=== PATIENT | female | born 1940 | race Caucasian/White ===

== ENCOUNTER 2016-10-23 12:36 | Observation (INO) | payer OTHER ==
[~2016-10-23] VITALS: Ht 157.5 cm; Wt 92.2 kg
[~2016-10-23 12:36] MED LIST: AMLODIPINE BESYL5 MG PO; ATENOLOL100 MG PO; BENADRYL25 MG PO; CLONIDINE HCL0.3 MG PO; COUMADIN1 MG PO; IRON325 M1 PO; LO-DOSE ASPIRIN81 M1 PO; METFORMIN HCL500 MG PO; OMEPRAZOLE40 M1 PO; OXYCODONE HCL5 MG PO; PLAVIX75 MG PO; PRAVASTATIN SOD80 MG PO; SENNA-TIME S T1 EACH PO; SINGULAIR10 MG PO; TEKTURNA150 MG PO; THERAGRAN1 TABLET PO; TYLENOL REGULA325 MG PO; ZESTORETIC 20-1 EAC1 NG; ZYRTEC10 M3 PO
[2016-10-23 13:33] LABS: ADD MIUA? YES; BILIRUBIN NEGATIVE; BLOOD NEGATIVE; COLOR YELLOW ((YELLOW)); GLUCOSE (STRIP) NEGATIVE; KETONES NEGATIVE; LEUKOCYTES SMALL; NITRITE NEGATIVE; PROTEIN (STRIP) NEGATIVE; SPECIFIC GRAVITY 1.013 (1.000-1.030); UROBILINOGEN 0.2 MG/DL (0.2-1.0)
[2016-10-23 13:37] LABS: BACTERIA NONE SEEN /HPF; EPITHELIAL CELLS 1+ /HPF; MUCUS NONE SEEN /LPF; RED BLOOD CELLS 0-5 /HPF (0-5); WHITE BLOOD CELLS 0-5 /HPF (0-5)
[2016-10-23 14:35] LABS: HEMATOCRIT 34.9 % (36.0-46.0); MCH 30.2 PG (29.0-34.0); MCHC 32.7 G/DL (30.0-36.0); MCV 92.6 FL (83-99); MEAN PLAT.VOLUME 9.2 uM^3 (9.5-12.4); PLATELET COUNT 379 K/uL (156-360); RBC DIS.WIDTH-CV 16.6 % (11.8-14.6); RBC DIS.WIDTH-SD 55.9 % (39-53); RED BLOOD COUNT 3.77 M/uL (3.80-5.20); WHITE BLOOD COUNT 7.5 K/uL (4.1-10.2)
[2016-10-23 14:47] LABS: ANION GAP 9 MEQ/L (2-14); CHLORIDE 97 MEQ/L (99-109); POTASSIUM 4.5 MEQ/L (3.7-5.4); PROTHROMBIN TIME 10.6 (9.2-11.2); PTT 27.1 (25-32); SAMPLE HEMOLYSIS CHECK 0; SAMPLE ICTERIC CHECK 0; SAMPLE LIPEMIA CHECK 0; SODIUM 133 MEQ/L (136-147); TOTAL BILIRUBIN 0.5 MG/DL (0.0-1.0)
[2016-10-23 14:52] LABS: ALKALINE PHOSPHATASE 94 IU/L (3-129); GFR ESTIMATE (CALCULATED) 39 mL/min/; GLUCOSE 134 mg/dL (70-99); UREA NITROGEN (BUN) 24 mg/dL (9-23)
[2016-10-23 15:37] LABS: TROP-I INTERPRETATION NEGATIVE; TROPONIN-I 0.03 ng/mL (0.0-0.30)
[2016-10-23] MEDS ORDERED: ATORVASTATIN CA80 MG PO (16:35)
[2016-10-23] MEDS ORDERED: ZESTORETIC 20-1 EAC1 PO (16:36)
[2016-10-23] MEDS ORDERED: METHOTREXATE2.5 MG PO (16:38)
[2016-10-23] MEDS ORDERED: LO-DOSE ASPIRIN81 M2 PO (16:38)
[2016-10-23] MEDS ORDERED: CLOPIDOGREL75 MG PO (16:38)
[2016-10-23] MEDS ORDERED: MAGNESIUM250 MG PO (16:39)
[2016-10-23] MEDS ORDERED: ERGOCALCIF50000 UNIT PO (16:39)
[2016-10-23] MEDS ORDERED: XELJANZ5 MG PO (16:39)
[2016-10-23] MEDS ORDERED: FOLIC ACID1 MG PO (16:39)
[2016-10-23 19:13] LABS: MAGNESIUM 1.5 mg/dl (1.3-2.7)
[2016-10-23 21:34] LABS: POINT-OF-CARE METER ID UU13113700
[2016-10-23 22:20] LABS: TROP-I INTERPRETATION NEGATIVE; TROPONIN-I 0.05 ng/mL (0.0-0.30)
[2016-10-24 00:59] VITALS: BP 88/48
[2016-10-24 01:40] VITALS: BP 130/66
[2016-10-24 04:27] VITALS: BP 117/61
[2016-10-24 05:56] LABS: TROP-I INTERPRETATION NEGATIVE; TROPONIN-I 0.06 ng/mL (0.0-0.30)
[2016-10-24 05:59] LABS: HEMATOCRIT 29.5 % (36.0-46.0); MCH 30.3 PG (29.0-34.0); MCHC 32.5 G/DL (30.0-36.0); MCV 93.1 FL (83-99); MEAN PLAT.VOLUME 9.6 uM^3 (9.5-12.4); PLATELET COUNT 310 K/uL (156-360); RBC DIS.WIDTH-CV 16.9 % (11.8-14.6); RBC DIS.WIDTH-SD 56.9 % (39-53); RED BLOOD COUNT 3.17 M/uL (3.80-5.20)
[2016-10-24 06:01] LABS: ANION GAP 7 MEQ/L (2-14); CHLORIDE 101 MEQ/L (99-109); GFR ESTIMATE (CALCULATED) 47 mL/min/; HDL CHOLESTEROL 38 MG/DL (Desirable>=50); LDL CHOLESTEROL 65 mg/dL (Desirable<100); NON-HDL CHOLESTEROL 109 mg/dL (Desirable<160); SAMPLE HEMOLYSIS CHECK 0; SAMPLE ICTERIC CHECK 0; SAMPLE LIPEMIA CHECK 0; SODIUM 134 MEQ/L (136-147); TOTAL CHOLESTEROL 147 mg/dL (Desirable<200); TRIGLYCERIDES 219 MG/DL (Normal: <150); UREA NITROGEN (BUN) 21 mg/dL (9-23)
[2016-10-24 06:27] LABS: GLUCOSE 97 mg/dL (70-99); POTASSIUM 3.5 MEQ/L (3.7-5.4)
[2016-10-24 06:31] LABS: WHITE BLOOD COUNT 4.4 K/uL (4.1-10.2)
[2016-10-24 09:01] VITALS: BP 150/72
[2016-10-24 11:16] VITALS: BP 170/74
[2016-10-24] MEDS ORDERED: AMLODIPINE BESY10 MG PO (12:14)
[2016-10-24] MEDS ORDERED: LOPRESSOR25 MG PO (12:23)
[2016-10-24] MEDS ORDERED: CLONIDINE HCL0.3 MG PO (14:21)
[2016-10-25 06:59] LABS: Estimated Average Glucose 143 mg/dL (70-123); HEMOGLOBIN A1c (GLYCOHEMOGLOB) 6.6 % HGB (Below 5.7)
== END 2016-10-24 14:57 | disposition home or self-care (01) ==
LOC: EME 12:36 → EDOF 18:25 → 5WEST 20:02
PROVIDERS: Internal Medicine; Nurse Practitioner Family
DX: R55 Syncope and collapse (principal); R07.9 Chest pain, unspecified; E11.65 Type 2 diabetes mellitus with hyperglycemia; N28.9 Disorder of kidney and ureter, unspecified; D64.9 Anemia, unspecified; Z86.73 Personal history of transient ischemic attack (TIA), and cerebral infarction without residual deficits; I25.10 Atherosclerotic heart disease of native coronary artery without angina pectoris; Z95.5 Presence of coronary angioplasty implant and graft; I10 Essential (primary) hypertension; E78.5 Hyperlipidemia, unspecified; M19.90 Unspecified osteoarthritis, unspecified site; Z96.659 Presence of unspecified artificial knee joint; N17.9 Acute kidney failure, unspecified; E86.0 Dehydration; I65.21 Occlusion and stenosis of right carotid artery; E04.1 Nontoxic single thyroid nodule
CPT/HCPCS: 70450; 71020; 73140; 76536; 80048; 80053; 80061; 81003; 82948; 83036; 83735; 84484; 85027; 85610; 85730; 93005; 93880; 99281; 99285; G0378; G8987 GO CH; G8988 GO CH; G8989 GO CH; J1650; J1815; J7030

== ENCOUNTER 2016-11-09 12:39 | Observation (INO) | payer OTHER ==
[~2016-11-09] VITALS: Ht 157.5 cm; Wt 98.3 kg
[~2016-11-09 12:39] MED LIST changes: +AMLODIPINE BESY10 MG PO; +ATORVASTATIN CA80 MG PO; +CLOPIDOGREL75 MG PO; +ERGOCALCIF50000 UNIT PO; +FOLIC ACID1 MG PO; +LO-DOSE ASPIRIN81 M2 PO; +LOPRESSOR25 MG PO; +MAGNESIUM250 MG PO; +METHOTREXATE2.5 MG PO; +XELJANZ5 MG PO; +ZESTORETIC 20-1 EAC1 PO
[2016-11-09 14:24] LABS: EOSINOPHIL (%) 1.7 % (0-5); EOSINOPHIL COUNT 0.1 K/uL (0-0.3); IMMATURE GRANULOCYTE (%) 1.7 % (0.0-0.7); IMMATURE GRANULOCYTE COUNT 0.1 K/uL; INSTRUMENT ABS NEUTROPHIL CT 3.6 K/uL; LYMPHOCYTE COUNT 1.1 K/uL (1.0-2.8); MCH 31.1 PG (29.0-34.0); MCV 94.3 FL (83-99); MEAN PLAT.VOLUME 9.4 uM^3 (9.5-12.4); MONOCYTE (%) 9.4 % (3-12); MONOCYTE COUNT 0.5 K/uL (0-0.8); NEUTROPHIL (%) 66.7 % (45-76); NEUTROPHIL COUNT 3.6 K/uL (1.8-6.4); PLATELET COUNT 336 K/uL (156-360); RBC DIS.WIDTH-CV 17.4 % (11.8-14.6); RBC DIS.WIDTH-SD 59.6 % (39-53); RED BLOOD COUNT 3.18 M/uL (3.80-5.20); WHITE BLOOD COUNT 5.4 K/uL (4.1-10.2)
[2016-11-09 14:36] LABS: PROTHROMBIN TIME 9.7 (9.2-11.2); PTT 27.6 (25-32)
[2016-11-09 14:41] LABS: CHLORIDE 104 mEq/L (99-109); POTASSIUM 4.3 mEq/L (3.7-5.4); SODIUM 139 mEq/L (136-147)
[2016-11-09 14:43] LABS: GLUCOSE 111 mg/dL (70-99)
[2016-11-09 14:44] LABS: ANION GAP 11 MEQ/L (2-14)
[2016-11-09 14:47] LABS: GFR ESTIMATE (CALCULATED) 58 mL/min/
[2016-11-09 14:48] LABS: UREA NITROGEN (BUN) 15 mg/dL (9-23)
[2016-11-09 14:54] LABS: Estimated Average Glucose 134 mg/dL (70-123); HEMOGLOBIN A1c (GLYCOHEMOGLOB) 6.3 % HGB (Below 5.7)
[2016-11-09 15:03] LABS: HDL CHOLESTEROL 45 MG/DL (Desirable>=50); LDL CHOLESTEROL 47 mg/dL (Desirable<100); NON-HDL CHOLESTEROL 74 mg/dL (Desirable<160); TOTAL CHOLESTEROL 119 mg/dL (Desirable<200); TRIGLYCERIDES 134 MG/DL (Normal: <150)
[2016-11-09] MEDS ORDERED: AMLODIPINE BESYL5 MG PO (15:50)
[2016-11-09] MEDS ORDERED: ATENOLOL50 MG PO (15:52)
[2016-11-09] MEDS ORDERED: CLONIDINE HCL0.3 MG PO (15:55)
[2016-11-09] MEDS ORDERED: MONTELUKAST SOD10 MG PO (15:57)
[2016-11-09] MEDS ORDERED: LISINOPRIL5 MG PO (15:59)
[2016-11-09] MEDS ORDERED: EXTRA STRENGTH500 M1 PO ×2 (16:00→16:03)
[2016-11-09] MEDS ORDERED: ATENOLOL100 MG PO (16:04)
[2016-11-09 16:32] LABS: TROP-I INTERPRETATION NEGATIVE; TROPONIN-I 0.05 ng/mL (0.0-0.30)
[2016-11-09 17:24] VITALS: BP 175/86
[2016-11-09 18:15] LABS: TROP-I INTERPRETATION NEGATIVE; TROPONIN-I 0.05 ng/mL (0.0-0.30)
[2016-11-09 19:30] VITALS: BP 183/89
[2016-11-10 00:06] LABS: TROP-I INTERPRETATION NEGATIVE; TROPONIN-I 0.07 ng/mL (0.0-0.30)
[2016-11-10 01:07] VITALS: BP 146/69
[2016-11-10 04:00] VITALS: BP 142/68
[2016-11-10 06:09] LABS: TROP-I INTERPRETATION NEGATIVE; TROPONIN-I 0.06 ng/mL (0.0-0.30)
[2016-11-10 06:29] LABS: HEMATOCRIT 25.3 % (36.0-46.0); MCH 30.2 PG (29.0-34.0); MCV 94.4 FL (83-99); MEAN PLAT.VOLUME 9.4 uM^3 (9.5-12.4); PLATELET COUNT 317 K/uL (156-360); RBC DIS.WIDTH-CV 17.6 % (11.8-14.6); RBC DIS.WIDTH-SD 61.1 % (39-53); RED BLOOD COUNT 2.68 M/uL (3.80-5.20); WHITE BLOOD COUNT 3.9 K/uL (4.1-10.2)
[2016-11-10 08:01] LABS: CHLORIDE 106 mEq/L (99-109); POTASSIUM 3.5 mEq/L (3.7-5.4); SODIUM 141 mEq/L (136-147)
[2016-11-10 08:03] LABS: GLUCOSE 101 mg/dL (70-99)
[2016-11-10 08:05] LABS: ANION GAP 10 MEQ/L (2-14)
[2016-11-10 08:07] LABS: GFR ESTIMATE (CALCULATED) > 59 mL/min/
[2016-11-10 08:08] LABS: UREA NITROGEN (BUN) 10 mg/dL (9-23)
[2016-11-10 11:06] VITALS: BP 180/82
[2016-11-10] MEDS ORDERED: LISINOPRIL5 MG PO (14:38)
[2016-11-10] MEDS ORDERED: AMLODIPINE BESYL5 MG PO (14:38)
== END 2016-11-10 15:55 | disposition home or self-care (01) ==
LOC: EME 12:39 → EDOF 16:11 → 5WEST 16:11
PROVIDERS: Emergency Medicine; Family Medicine; Physician Assistant Medical
DX: G45.9 Transient cerebral ischemic attack, unspecified (principal); R94.31 Abnormal electrocardiogram [ECG] [EKG]; D64.9 Anemia, unspecified; R20.0 Anesthesia of skin; R29.810 Facial weakness; R05 Cough; E11.9 Type 2 diabetes mellitus without complications; E78.5 Hyperlipidemia, unspecified; M79.604 Pain in right leg; I10 Essential (primary) hypertension; I25.10 Atherosclerotic heart disease of native coronary artery without angina pectoris; Z95.5 Presence of coronary angioplasty implant and graft; Z96.652 Presence of left artificial knee joint; M19.90 Unspecified osteoarthritis, unspecified site
CPT/HCPCS: 70450; 70498; 71020; 80048; 80061; 83036; 84484; 85025; 85027; 85610; 85730; 93005; 93971; 99281; 99285; G0378; G8978 GP CH; G8979 GP CH; G8980 GP CH; J7030

== ENCOUNTER 2017-01-02 02:24 | Inpatient (IN) | payer OTHER ==
[~2017-01-02] VITALS: Ht 157.5 cm; Wt 93.2 kg
[~2017-01-02 02:24] MED LIST changes: +ATENOLOL50 MG PO; +EXTRA STRENGTH500 M1 PO; +LISINOPRIL5 MG PO; +MONTELUKAST SOD10 MG PO
[2017-01-02 03:05] LABS: HEMATOCRIT 39.1 % (36.0-46.0); MCH 30.7 PG (29.0-34.0); MCHC 32.2 G/DL (30.0-36.0); MCV 95.1 FL (83-99); NRBC (%) 0.4 /100 WBC (0-0); PLATELET COUNT 474 K/uL (156-360); RBC DIS.WIDTH-CV 18.4 % (11.8-14.6); RBC DIS.WIDTH-SD 61.6 % (39-53); RED BLOOD COUNT 4.11 M/uL (3.80-5.20); WHITE BLOOD COUNT 10.8 K/uL (4.1-10.2)
[2017-01-02 03:17] LABS: INTER. NORMALIZED RATIO 1.3; PROTHROMBIN TIME 13.5 (9.2-11.2); PTT 32.1 (25-32)
[2017-01-02 03:20] LABS: CHLORIDE 103 mEq/L (99-109); POTASSIUM 4.2 mEq/L (3.7-5.4); SODIUM 136 mEq/L (136-147)
[2017-01-02 03:22] LABS: GLUCOSE 287 mg/dL (70-99)
[2017-01-02 03:23] LABS: ANION GAP 15 MEQ/L (2-14)
[2017-01-02 03:24] LABS: TOTAL BILIRUBIN 0.4 mg/dL (0.0-1.0); TROP-I INTERPRETATION NEGATIVE; TROPONIN-I 0.02 ng/mL (0.0-0.30)
[2017-01-02 03:26] LABS: ALKALINE PHOSPHATASE 124 IU/L (3-129); GFR ESTIMATE (CALCULATED) 26 mL/min/
[2017-01-02 03:27] LABS: UREA NITROGEN (BUN) 23 mg/dL (9-23)
[2017-01-02 03:27] LABS: BASE EXCESS -4.4 mEq/L (-3 to +3); CARBOXY HGB 1.7 % (0-5); COMMENTS - BLOOD GASES C+; DEVICE MASK VENT; FI02 30 %; METHEMOGLOBIN 0.8 % (0-1.5); MODE SPONT; PCO2 39 mm Hg (35-45); PO2 72 mm Hg (80-100); SITE RR; TOTAL RESP RATE 22 resp/min; pH 7.34 (7.35-7.45)
[2017-01-02 03:28] LABS: PEEP 10 CM/H20; PRES. SUPPORT 15 CM/H2O
[2017-01-02 03:29] LABS: LIPASE 20 U/L (1.0-51.0)
[2017-01-02] MEDS ORDERED: LASIX20 MG PO (03:44)
[2017-01-02] MEDS ORDERED: XARELTO20 MG PO (03:45)
[2017-01-02] MEDS ORDERED: CLONIDINE HCL0.3 MG PO (03:52)
[2017-01-02] MEDS ORDERED: VALACYCLOVIR1000 MG PO (03:53)
[2017-01-02] MEDS ORDERED: ATENOLOL100 MG PO ×2 (03:55→14:35)
[2017-01-02 10:34] VITALS: BP 135/80
[2017-01-02 11:10] LABS: TROP-I INTERPRETATION NEGATIVE; TROPONIN-I 0.05 ng/mL (0.0-0.30)
[2017-01-02 13:54] LABS: POINT-OF-CARE METER ID UU13113781
[2017-01-02] MEDS ORDERED: LISINOPRIL10 MG PO (14:37)
[2017-01-02] MEDS ORDERED: AMIODARONE HCL200 MG PO (14:39)
[2017-01-02] MEDS ORDERED: PRED FORTE100 DROP/5 RIGHT EYE (14:40)
[2017-01-02] MEDS ORDERED: COMBIGAN O20 DROP/5 RIGHT EYE (14:41)
[2017-01-02] MEDS ORDERED: LUMIGAN 0.50 DROP/22 RIGHT EYE (14:42)
[2017-01-02 15:07] LABS: TROP-I INTERPRETATION NEGATIVE; TROPONIN-I 0.06 ng/mL (0.0-0.30)
[2017-01-02 16:00] VITALS: BP 150/98
[2017-01-02 17:04] LABS: POINT-OF-CARE METER ID UU13113698
[2017-01-02 19:30] VITALS: BP 133/78
[2017-01-02 19:50] LABS: ADD MIUA? YES; BILIRUBIN NEGATIVE; BLOOD SMALL; COLOR YELLOW ((YELLOW)); GLUCOSE (STRIP) 50; KETONES NEGATIVE; LEUKOCYTES SMALL; NITRITE NEGATIVE; PROTEIN (STRIP) NEGATIVE; UROBILINOGEN 0.2 MG/DL (0.2-1.0)
[2017-01-02 20:09] LABS: BACTERIA NONE SEEN /HPF; EPITHELIAL CELLS RARE /HPF; GRANULAR CASTS 0-5 /LPF; HYALINE CASTS 0-5 /LPF; MUCUS TRACE /LPF; RED BLOOD CELLS 15-20 /HPF (0-5); UCUL ADDED? NO; WHITE BLOOD CELLS 15-20 /HPF (0-5)
[2017-01-02 21:00] LABS: POINT-OF-CARE METER ID UU13113698
[2017-01-03 00:10] VITALS: BP 100/62
[2017-01-03 04:32] VITALS: BP 108/77
[2017-01-03 05:42] LABS: HEMATOCRIT 29.5 % (36.0-46.0); MCH 31.9 PG (29.0-34.0); MCHC 33.6 G/DL (30.0-36.0); MCV 95.2 FL (83-99); NRBC (%) 0.3 /100 WBC (0-0); RBC DIS.WIDTH-CV 18.8 % (11.8-14.6); RBC DIS.WIDTH-SD 62.8 % (39-53); WHITE BLOOD COUNT 6.8 K/uL (4.1-10.2)
[2017-01-03 05:58] LABS: ALKALINE PHOSPHATASE 70 IU/L (3-129); ANION GAP 8 MEQ/L (2-14); CHLORIDE 101 MEQ/L (99-109); POTASSIUM 3.7 MEQ/L (3.7-5.4); SAMPLE HEMOLYSIS CHECK 0; SAMPLE ICTERIC CHECK 0; SAMPLE LIPEMIA CHECK 0; SODIUM 139 MEQ/L (136-147); TOTAL BILIRUBIN 0.6 MG/DL (0.0-1.0); UREA NITROGEN (BUN) 22 mg/dL (9-23)
[2017-01-03 05:59] LABS: MEAN PLAT.VOLUME 9.9 uM^3 (9.5-12.4)
[2017-01-03 06:01] LABS: GFR ESTIMATE (CALCULATED) 36 mL/min/; GLUCOSE 105 mg/dL (70-99)
[2017-01-03 06:28] LABS: PLATELET COUNT 313 K/uL (156-360)
[2017-01-03 07:27] VITALS: BP 112/56
[2017-01-03 11:11] LABS: POINT-OF-CARE METER ID UU14174216
[2017-01-03 11:42] VITALS: BP 115/67
[2017-01-03 16:00] VITALS: BP 129/70
[2017-01-03 19:20] VITALS: BP 149/108
[2017-01-03 20:43] LABS: POINT-OF-CARE METER ID UU13113698
[2017-01-04 00:10] VITALS: BP 125/71
[2017-01-04 04:42] VITALS: BP 125/80
[2017-01-04 06:00] LABS: MCH 31.8 PG (29.0-34.0); MCHC 33.5 G/DL (30.0-36.0); MCV 94.8 FL (83-99); MEAN PLAT.VOLUME 10.1 uM^3 (9.5-12.4); NRBC (%) 0.4 /100 WBC (0-0); PLATELET COUNT 301 K/uL (156-360); RBC DIS.WIDTH-CV 18.8 % (11.8-14.6); RBC DIS.WIDTH-SD 64.2 % (39-53); RED BLOOD COUNT 3.27 M/uL (3.80-5.20); WHITE BLOOD COUNT 5.6 K/uL (4.1-10.2)
[2017-01-04 06:32] LABS: ANION GAP 8 MEQ/L (2-14); CHLORIDE 102 MEQ/L (99-109); GFR ESTIMATE (CALCULATED) 31 mL/min/; GLUCOSE 110 mg/dL (70-99); POTASSIUM 3.5 MEQ/L (3.7-5.4); SAMPLE HEMOLYSIS CHECK 0; SAMPLE ICTERIC CHECK 0; SAMPLE LIPEMIA CHECK 0; SODIUM 138 MEQ/L (136-147); UREA NITROGEN (BUN) 24 mg/dL (9-23)
[2017-01-04 07:11] VITALS: BP 169/93
[2017-01-04 08:21] LABS: TROP-I INTERPRETATION NEGATIVE; TROPONIN-I 0.02 ng/mL (0.0-0.30)
[2017-01-04 11:49] VITALS: BP 154/87
[2017-01-04 15:24] VITALS: BP 154/96
[2017-01-04 19:23] VITALS: BP 165/95
[2017-01-04 21:10] LABS: POINT-OF-CARE METER ID UU13113781
[2017-01-05 00:56] VITALS: BP 123/91
[2017-01-05 04:31] VITALS: BP 124/89
[2017-01-05 05:57] LABS: ANION GAP 10 MEQ/L (2-14); CHLORIDE 102 MEQ/L (99-109); GFR ESTIMATE (CALCULATED) 36 mL/min/; GLUCOSE 128 mg/dL (70-99); SAMPLE HEMOLYSIS CHECK 0; SAMPLE ICTERIC CHECK 0; SAMPLE LIPEMIA CHECK 0; SODIUM 138 MEQ/L (136-147); UREA NITROGEN (BUN) 22 mg/dL (9-23)
[2017-01-05 07:40] LABS: POINT-OF-CARE METER ID UU13113781; POINT-OF-CARE USER ID ENVKC36
[2017-01-05 07:45] VITALS: BP 134/87
[2017-01-05] MEDS ORDERED: XARELTO15 MG PO (11:07)
[2017-01-05] MEDS ORDERED: ATENOLOL25 MG PO (11:11)
[2017-01-05 11:47] VITALS: BP 135/98
[2017-01-05 11:59] LABS: POINT-OF-CARE USER ID ENVKC36
== END 2017-01-05 14:16 | disposition home or self-care (01) | DRG 291 ==
LOC: EME 02:24 → EDOF 07:54 → 4EAST 07:54
PROVIDERS: Emergency Medicine; Hospitalist; Internal Medicine; Internal Medicine Nephrology
DX: I11.0 Hypertensive heart disease with heart failure (principal); J96.01 Acute respiratory failure with hypoxia; N17.9 Acute kidney failure, unspecified; E87.2 Acidosis; E86.0 Dehydration; I48.2 Chronic atrial fibrillation; E11.9 Type 2 diabetes mellitus without complications; I25.10 Atherosclerotic heart disease of native coronary artery without angina pectoris; E87.6 Hypokalemia; E78.5 Hyperlipidemia, unspecified; I50.31 Acute diastolic (congestive) heart failure; Z86.73 Personal history of transient ischemic attack (TIA), and cerebral infarction without residual deficits; J98.11 Atelectasis; K21.9 Gastro-esophageal reflux disease without esophagitis; M06.9 Rheumatoid arthritis, unspecified; M19.90 Unspecified osteoarthritis, unspecified site; Z68.37 Body mass index [BMI] 37.0-37.9, adult; Z79.01 Long term (current) use of anticoagulants; Z79.82 Long term (current) use of aspirin; Z79.84 Long term (current) use of oral hypoglycemic drugs; Z79.899 Other long term (current) drug therapy; Z87.440 Personal history of urinary (tract) infections; Z90.49 Acquired absence of other specified parts of digestive tract; Z95.5 Presence of coronary angioplasty implant and graft; Z96.652 Presence of left artificial knee joint
CPT/HCPCS: 36600; 71010; 76770; 80053; 80069; 81003; 82570; 82803; 82948; 83605; 83690; 83880; 84100; 84156; 84484; 85027; 85610; 85730; 87040; 93005; 94002; 94799; 99281; 99285; J0696; J1815; J1940; J7050

== ENCOUNTER 2017-08-30 21:55 | Inpatient (IN) | payer OTHER ==
[~2017-08-30] VITALS: Ht 157.5 cm; Wt 88.5 kg
[~2017-08-30 21:55] MED LIST changes: +AMIODARONE HCL200 MG PO; +ATENOLOL25 MG PO; +COMBIGAN O20 DROP/5 RIGHT EYE; +LASIX20 MG PO; +LISINOPRIL10 MG PO; +LUMIGAN 0.50 DROP/22 RIGHT EYE; +PRED FORTE100 DROP/5 RIGHT EYE; +VALACYCLOVIR1000 MG PO; +XARELTO15 MG PO; +XARELTO20 MG PO
[2017-08-30 22:30] LABS: HEMATOCRIT 36.5 % (36.0-46.0); HEMOGLOBIN 10.9 G/DL (11.9-15.5); MCH 23.2 PG (29.0-34.0); MCHC 29.9 G/DL (30.0-36.0); MCV 77.7 FL (83-99); PLATELET COUNT 411 K/uL (156-360); RBC DIS.WIDTH-CV 18.7 % (11.8-14.6); RBC DIS.WIDTH-SD 50.1 % (39-53); WHITE BLOOD COUNT 13.6 K/uL (4.1-10.2)
[2017-08-30 22:44] LABS: ALBUMIN 4.4 g/dL (3.2-4.8)
[2017-08-30 22:45] LABS: CHLORIDE 102 mEq/L (99-109); POTASSIUM 4.1 mEq/L (3.7-5.4); SODIUM 137 mEq/L (136-147)
[2017-08-30 22:47] LABS: GLUCOSE 257 mg/dL (70-99); TOTAL PROTEIN 8.2 g/dL (6.4-8.3)
[2017-08-30 22:49] LABS: TOTAL BILIRUBIN 0.8 mg/dL (0.0-1.0)
[2017-08-30 22:50] LABS: ALKALINE PHOSPHATASE 175 IU/L (3-129)
[2017-08-30 22:51] LABS: CREATININE 1.6 mg/dL (0.6-1.3); GFR ESTIMATE (CALCULATED) 33 mL/min/
[2017-08-30 22:52] LABS: AST (GOT) 25 IU/L (2-34); UREA NITROGEN (BUN) 24 mg/dL (9-23)
[2017-08-30 22:53] LABS: ALT (GPT) 17 IU/L (3-49); TROP-I INTERPRETATION NEGATIVE; TROPONIN-I 0.02 ng/mL (0.0-0.30)
[2017-08-31] MEDS ORDERED: AMLODIPINE BESYL5 MG PO (00:33)
[2017-08-31] MEDS ORDERED: LISINOPRIL20 MG PO (00:34)
[2017-08-31] MEDS ORDERED: FUROSEMIDE40 MG PO (00:34)
[2017-08-31] MEDS ORDERED: ELIQUIS2.5 MG PO (00:35)
[2017-08-31] MEDS ORDERED: LOPRESSOR50 MG PO (00:36)
[2017-08-31] MEDS ORDERED: FUROSEMIDE20 MG PO (00:37)
[2017-08-31] MEDS ORDERED: TYLENOL EXTRA500 MG PO (00:38)
[2017-08-31 04:31] LABS: TROP-I INTERPRETATION NEGATIVE; TROPONIN-I 0.01 ng/mL (0.0-0.30)
[2017-08-31 10:26] LABS: HEMATOCRIT 30.7 % (36.0-46.0); HEMOGLOBIN 9.4 G/DL (11.9-15.5); MCH 23.2 PG (29.0-34.0); MCHC 30.6 G/DL (30.0-36.0); MCV 75.8 FL (83-99); PLATELET COUNT 317 K/uL (156-360); RBC DIS.WIDTH-CV 18.5 % (11.8-14.6); RBC DIS.WIDTH-SD 48.8 % (39-53); RED BLOOD COUNT 4.05 M/uL (3.80-5.20); WHITE BLOOD COUNT 8.7 K/uL (4.1-10.2)
[2017-08-31 10:27] LABS: HEMOGLOBIN A1c (GLYCOHEMOGLOB) 6.5 % (Below 5.7)
[2017-08-31 10:35] LABS: CHLORIDE 102 mEq/L (99-109); POTASSIUM 3.8 mEq/L (3.7-5.4); SODIUM 139 mEq/L (136-147)
[2017-08-31 10:37] LABS: GLUCOSE 117 mg/dL (70-99)
[2017-08-31 10:41] LABS: CREATININE 1.2 mg/dL (0.6-1.3); GFR ESTIMATE (CALCULATED) 47 mL/min/
[2017-08-31 10:42] LABS: UREA NITROGEN (BUN) 22 mg/dL (9-23)
[2017-08-31 10:50] LABS: TROP-I INTERPRETATION NEGATIVE; TROPONIN-I 0.02 ng/mL (0.0-0.30)
[2017-08-31 11:29] LABS: APPEARANCE CLEAR ((CLEAR)); BILIRUBIN NEGATIVE; BLOOD NEGATIVE; COLOR STRAW ((YELLOW)); GLUCOSE (STRIP) NEGATIVE; KETONES NEGATIVE; LEUKOCYTES MODERATE; NITRITE NEGATIVE; PROTEIN (STRIP) NEGATIVE; SPECIFIC GRAVITY 1.008 (1.000-1.030); UROBILINOGEN 0.2 MG/DL (0.2-1.0)
[2017-08-31 11:39] LABS: BACTERIA NONE SEEN /HPF; EPITHELIAL CELLS RARE /HPF; HYALINE CASTS 0-5 /LPF; MUCUS TRACE /LPF; RED BLOOD CELLS 0-5 /HPF (0-5); UCUL ADDED? YES
[2017-08-31 16:01] VITALS: BP 136/74
[2017-08-31 16:16] VITALS: BP 136/74
[2017-08-31 20:20] VITALS: BP 165/83
[2017-09-01] VITALS (8 sets, daily range): BP systolic 121–156; BP diastolic 66–87
[2017-09-01 05:48] LABS: BASOPHIL (%) 0.7 % (0-1); BASOPHIL COUNT 0.1 K/uL (0-0.1); EOSINOPHIL (%) 1.4 % (0-5); EOSINOPHIL COUNT 0.2 K/uL (0-0.3); HEMATOCRIT 35.8 % (36.0-46.0); HEMOGLOBIN 10.5 G/DL (11.9-15.5); IMMATURE GRANULOCYTE (%) 0.3 % (0.0-0.7); LYMPHOCYTE (%) 35.3 % (15-42); LYMPHOCYTE COUNT 3.8 K/uL (1.0-2.8); MCH 22.5 PG (29.0-34.0); MCHC 29.3 G/DL (30.0-36.0); MCV 76.7 FL (83-99); MONOCYTE (%) 7.8 % (3-12); MONOCYTE COUNT 0.8 K/uL (0-0.8); NEUTROPHIL (%) 54.5 % (45-76); NEUTROPHIL COUNT 5.8 K/uL (1.8-6.4); PLATELET COUNT 391 K/uL (156-360); RBC DIS.WIDTH-CV 18.6 % (11.8-14.6); RBC DIS.WIDTH-SD 49.1 % (39-53); RED BLOOD COUNT 4.67 M/uL (3.80-5.20); WHITE BLOOD COUNT 10.7 K/uL (4.1-10.2)
[2017-09-01 06:37] LABS: ALBUMIN 4.3 G/DL (3.2-4.8); ALKALINE PHOSPHATASE 116 IU/L (3-129); ALT (GPT) 14 IU/L (3-49); AST (GOT) 16 IU/L (2-34); CHLORIDE 96 MEQ/L (99-109); CREATININE 1.3 MG/DL (0.6-1.3); GFR ESTIMATE (CALCULATED) 43 mL/min/; GLUCOSE 147 mg/dL (70-99); POTASSIUM 3.7 MEQ/L (3.7-5.4); SODIUM 137 MEQ/L (136-147); TOTAL BILIRUBIN 0.9 MG/DL (0.0-1.0); TOTAL PROTEIN 7.7 G/DL (6.4-8.3); UREA NITROGEN (BUN) 19 mg/dL (9-23)
[2017-09-01 08:39] LABS: IMM.RETIC FRACTION 32.3 % (3-19); RETIC HGB EQUIVALENT 25.8 (28-36); RETICULOCYTE COUNT 3.5 % (0.5-1.8)
[2017-09-01 08:48] LABS: IRON 30 MCG/DL (35-150); TRANSFERRIN (TIBC) 371.7 mg/dL (215-380); TRANSFERRIN SATUR. 8 % (20-55)
[2017-09-01 09:03] LABS: FERRITIN 34 NG/ML (10-291)
[2017-09-02 03:35] VITALS: BP 126/68
[2017-09-02 06:53] LABS: BASOPHIL (%) 0.7 % (0-1); BASOPHIL COUNT 0.1 K/uL (0-0.1); EOSINOPHIL (%) 2.2 % (0-5); EOSINOPHIL COUNT 0.2 K/uL (0-0.3); HEMOGLOBIN 9.5 G/DL (11.9-15.5); IMMATURE GRANULOCYTE (%) 0.4 % (0.0-0.7); LYMPHOCYTE (%) 34.1 % (15-42); LYMPHOCYTE COUNT 2.8 K/uL (1.0-2.8); MCH 22.8 PG (29.0-34.0); MCHC 29.7 G/DL (30.0-36.0); MCV 76.9 FL (83-99); MONOCYTE (%) 10.1 % (3-12); MONOCYTE COUNT 0.8 K/uL (0-0.8); NEUTROPHIL (%) 52.5 % (45-76); NEUTROPHIL COUNT 4.2 K/uL (1.8-6.4); PLATELET COUNT 333 K/uL (156-360); RBC DIS.WIDTH-CV 18.6 % (11.8-14.6); RBC DIS.WIDTH-SD 49.8 % (39-53); RED BLOOD COUNT 4.16 M/uL (3.80-5.20); WHITE BLOOD COUNT 8.1 K/uL (4.1-10.2)
[2017-09-02 07:17] LABS: ALBUMIN 3.7 G/DL (3.2-4.8); ALKALINE PHOSPHATASE 99 IU/L (3-129); ALT (GPT) 11 IU/L (3-49); AST (GOT) 12 IU/L (2-34); CHLORIDE 98 MEQ/L (99-109); CREATININE 1.7 MG/DL (0.6-1.3); GFR ESTIMATE (CALCULATED) 31 mL/min/; GLUCOSE 162 mg/dL (70-99); POTASSIUM 5.2 MEQ/L (3.7-5.4); SODIUM 138 MEQ/L (136-147); TOTAL BILIRUBIN 0.8 MG/DL (0.0-1.0); TOTAL PROTEIN 6.5 G/DL (6.4-8.3); UREA NITROGEN (BUN) 30 mg/dL (9-23)
[2017-09-02 08:09] VITALS: BP 109/66
[2017-09-02 11:10] LABS: DIGOXIN 3.3 ng/mL (0.8-2.0)
[2017-09-02 11:36] VITALS: BP 107/65
[2017-09-02 12:15] LABS: FOLIC ACID (FOLATE) 21.2 NG/ML (5.0-22.0)
[2017-09-02 16:52] VITALS: BP 121/65
[2017-09-02 20:00] VITALS: BP 137/76
[2017-09-02 23:50] VITALS: BP 100/55
[2017-09-03 03:55] VITALS: BP 120/64
[2017-09-03 06:05] LABS: BASOPHIL (%) 0.8 % (0-1); BASOPHIL COUNT 0.1 K/uL (0-0.1); EOSINOPHIL (%) 3.2 % (0-5); EOSINOPHIL COUNT 0.2 K/uL (0-0.3); HEMATOCRIT 31.9 % (36.0-46.0); HEMOGLOBIN 9.5 G/DL (11.9-15.5); IMMATURE GRANULOCYTE (%) 0.1 % (0.0-0.7); LYMPHOCYTE (%) 32.5 % (15-42); LYMPHOCYTE COUNT 2.3 K/uL (1.0-2.8); MCH 22.6 PG (29.0-34.0); MCHC 29.8 G/DL (30.0-36.0); MCV 75.8 FL (83-99); MONOCYTE (%) 10.2 % (3-12); MONOCYTE COUNT 0.7 K/uL (0-0.8); NEUTROPHIL (%) 53.2 % (45-76); NEUTROPHIL COUNT 3.8 K/uL (1.8-6.4); PLATELET COUNT 327 K/uL (156-360); RBC DIS.WIDTH-CV 18.5 % (11.8-14.6); RED BLOOD COUNT 4.21 M/uL (3.80-5.20); WHITE BLOOD COUNT 7.2 K/uL (4.1-10.2)
[2017-09-03 06:31] LABS: ALBUMIN 3.6 G/DL (3.2-4.8); ALKALINE PHOSPHATASE 102 IU/L (3-129); ALT (GPT) 11 IU/L (3-49); AST (GOT) 13 IU/L (2-34); CHLORIDE 98 MEQ/L (99-109); CREATININE 1.4 MG/DL (0.6-1.3); GFR ESTIMATE (CALCULATED) 39 mL/min/; GLUCOSE 155 mg/dL (70-99); POTASSIUM 4.3 MEQ/L (3.7-5.4); SODIUM 135 MEQ/L (136-147); TOTAL BILIRUBIN 0.6 MG/DL (0.0-1.0); TOTAL PROTEIN 6.3 G/DL (6.4-8.3); UREA NITROGEN (BUN) 31 mg/dL (9-23)
[2017-09-03 07:20] VITALS: BP 125/58
[2017-09-03 11:28] VITALS: BP 121/61
[2017-09-03 15:51] VITALS: BP 132/68
[2017-09-03 20:00] VITALS: BP 138/67
[2017-09-04] VITALS: BP 110/59
[2017-09-04 03:54] VITALS: BP 101/59
[2017-09-04] MEDS ORDERED: CARDIZEM90 MG PO (07:54)
[2017-09-04] MEDS ORDERED: FUROSEMIDE20 MG PO ×2 (07:54→10:28)
[2017-09-04] MEDS ORDERED: FERROUS SULFAT325 MG PO (07:54)
[2017-09-04] MEDS ORDERED: COLACE100 MG PO (07:58)
[2017-09-04 08:17] VITALS: BP 122/62
[2017-09-04 09:54] LABS: CHLORIDE 96 MEQ/L (99-109); CREATININE 1.5 MG/DL (0.6-1.3); GFR ESTIMATE (CALCULATED) 36 mL/min/; GLUCOSE 154 mg/dL (70-99); POTASSIUM 4.3 MEQ/L (3.7-5.4); SODIUM 135 MEQ/L (136-147); UREA NITROGEN (BUN) 32 mg/dL (9-23)
== END 2017-09-04 12:15 | disposition home health service (06) | DRG 308 ==
LOC: EME → EDBD 22:05 → 4EAST 08-31 03:13 → EDOF 08-31 03:13 → 5SOUTH 08-31 03:13 → ENRESERV 08-31 03:15 → 4EAST 08-31 15:51 → ENRESERV 09-01 14:20 → 5SOUTH 09-01 17:05
PROVIDERS: Emergency Medicine; Hospitalist; Physician Assistant Medical
PROC: 5A09357 Assistance with Respiratory Ventilation, Less than 24 Consecutive Hours, Continuous Positive Airway Pressure (ICD-10-PCS; principal; 2017-08-30)
DX: I48.0 Paroxysmal atrial fibrillation (principal); I13.0 Hypertensive heart and chronic kidney disease with heart failure and stage 1 through stage 4 chronic kidney disease, or unspecified chronic kidney disease; I50.23 Acute on chronic systolic (congestive) heart failure; J96.01 Acute respiratory failure with hypoxia; N18.3 Chronic kidney disease, stage 3 (moderate); N17.9 Acute kidney failure, unspecified; D72.829 Elevated white blood cell count, unspecified; E11.22 Type 2 diabetes mellitus with diabetic chronic kidney disease; E11.51 Type 2 diabetes mellitus with diabetic peripheral angiopathy without gangrene; I42.9 Cardiomyopathy, unspecified; I08.1 Rheumatic disorders of both mitral and tricuspid valves; I27.20 Pulmonary hypertension, unspecified; E78.5 Hyperlipidemia, unspecified; I25.10 Atherosclerotic heart disease of native coronary artery without angina pectoris; D50.8 Other iron deficiency anemias; K21.9 Gastro-esophageal reflux disease without esophagitis; Z96.659 Presence of unspecified artificial knee joint; E66.01 Morbid (severe) obesity due to excess calories; Z68.35 Body mass index [BMI] 35.0-35.9, adult; Z98.61 Coronary angioplasty status; Z86.73 Personal history of transient ischemic attack (TIA), and cerebral infarction without residual deficits; Z79.82 Long term (current) use of aspirin; Z79.01 Long term (current) use of anticoagulants; Z79.84 Long term (current) use of oral hypoglycemic drugs
CPT/HCPCS: 71045; 71046; 80048; 80053; 80162; 81003; 82607; 82728; 82746; 82948; 83036; 83540; 83880; 84443; 84466; 84484; 85025; 85027; 85046; 87086; 93005; 93306; 93971; 94002; 94760; 94799; 99202; 99281; 99285; J1160; J1815; J1940; J7050

== ENCOUNTER 2017-09-21 13:02 | Inpatient (IN) | payer OTHER ==
[~2017-09-21] VITALS: Ht 157.5 cm; Wt 87.0 kg
[~2017-09-21 13:02] MED LIST changes: +CARDIZEM90 MG PO; +COLACE100 MG PO; +ELIQUIS2.5 MG PO; +FERROUS SULFAT325 MG PO; +FUROSEMIDE20 MG PO; +FUROSEMIDE40 MG PO; +LISINOPRIL20 MG PO; +LOPRESSOR50 MG PO; +TYLENOL EXTRA500 MG PO
[2017-09-21 14:02] LABS: BASOPHIL (%) 0.4 % (0-1); BASOPHIL COUNT 0.1 K/uL (0-0.1); EOSINOPHIL (%) 0.7 % (0-5); EOSINOPHIL COUNT 0.1 K/uL (0-0.3); HEMATOCRIT 41.9 % (36.0-46.0); HEMOGLOBIN 12.7 G/DL (11.9-15.5); IMMATURE GRANULOCYTE (%) 0.5 % (0.0-0.7); LYMPHOCYTE (%) 19.4 % (15-42); LYMPHOCYTE COUNT 2.4 K/uL (1.0-2.8); MCH 24.1 PG (29.0-34.0); MCHC 30.3 G/DL (30.0-36.0); MCV 79.4 FL (83-99); MONOCYTE (%) 5.1 % (3-12); MONOCYTE COUNT 0.6 K/uL (0-0.8); NEUTROPHIL (%) 73.9 % (45-76); NEUTROPHIL COUNT 8.9 K/uL (1.8-6.4); PLATELET COUNT 405 K/uL (156-360); RBC DIS.WIDTH-CV 20.5 % (11.8-14.6); RBC DIS.WIDTH-SD 56.9 % (39-53); RED BLOOD COUNT 5.28 M/uL (3.80-5.20); WHITE BLOOD COUNT 12.1 K/uL (4.1-10.2)
[2017-09-21 14:19] LABS: ALBUMIN 4.3 g/dL (3.2-4.8)
[2017-09-21 14:20] LABS: CHLORIDE 99 mEq/L (99-109); SODIUM 137 mEq/L (136-147)
[2017-09-21 14:21] LABS: INTER. NORMALIZED RATIO 1.9; POTASSIUM 4.7 mEq/L (3.7-5.4)
[2017-09-21 14:22] LABS: GLUCOSE 213 mg/dL (70-99); TOTAL PROTEIN 7.9 g/dL (6.4-8.3)
[2017-09-21 14:24] LABS: TOTAL BILIRUBIN 0.8 mg/dL (0.0-1.0)
[2017-09-21 14:25] LABS: ALKALINE PHOSPHATASE 140 IU/L (3-129)
[2017-09-21 14:26] LABS: CREATININE 1.6 mg/dL (0.6-1.3); GFR ESTIMATE (CALCULATED) 33 mL/min/; TROP-I INTERPRETATION NEGATIVE; TROPONIN-I 0.07 ng/mL (0.0-0.30)
[2017-09-21 14:27] LABS: AST (GOT) 26 IU/L (2-34); UREA NITROGEN (BUN) 16 mg/dL (9-23)
[2017-09-21 14:28] LABS: ALT (GPT) 24 IU/L (3-49)
[2017-09-21 16:29] LABS: APPEARANCE SL.HAZY ((CLEAR)); BILIRUBIN NEGATIVE; BLOOD NEGATIVE; COLOR YELLOW ((YELLOW)); GLUCOSE (STRIP) NEGATIVE; KETONES NEGATIVE; LEUKOCYTES SMALL; NITRITE NEGATIVE; PROTEIN (STRIP) 100; SPECIFIC GRAVITY 1.016 (1.000-1.030); UROBILINOGEN 0.2 MG/DL (0.2-1.0)
[2017-09-21 16:43] LABS: BACTERIA RARE /HPF; EPITHELIAL CELLS 1+ /HPF; HYALINE CASTS 30-40 /LPF; MUCUS TRACE /LPF; RED BLOOD CELLS 0-5 /HPF (0-5); UCUL ADDED? NO; WHITE BLOOD CELLS 0-5 /HPF (0-5)
[2017-09-21] MEDS ORDERED: FEOSOL325 MG PO (17:08)
[2017-09-21] MEDS ORDERED: PRINIVIL20 MG PO (17:10)
[2017-09-21] MEDS ORDERED: LOPRESSOR100 M1 PO (17:12)
[2017-09-21] MEDS ORDERED: SINGULAIR10 MG PO (17:13)
[2017-09-21 21:45] VITALS: BP 121/68
[2017-09-21 22:00] VITALS: BP 121/68
[2017-09-22 03:52] VITALS: BP 127/67
[2017-09-22 05:49] LABS: HEMATOCRIT 35.7 % (36.0-46.0); HEMOGLOBIN 10.8 G/DL (11.9-15.5); MCH 23.5 PG (29.0-34.0); MCHC 30.3 G/DL (30.0-36.0); MCV 77.8 FL (83-99); PLATELET COUNT 321 K/uL (156-360); RBC DIS.WIDTH-CV 20.2 % (11.8-14.6); RBC DIS.WIDTH-SD 56.2 % (39-53); RED BLOOD COUNT 4.59 M/uL (3.80-5.20); WHITE BLOOD COUNT 9.2 K/uL (4.1-10.2)
[2017-09-22 06:13] LABS: CHLORIDE 98 MEQ/L (99-109); CREATININE 1.4 MG/DL (0.6-1.3); GFR ESTIMATE (CALCULATED) 39 mL/min/; POTASSIUM 3.8 MEQ/L (3.7-5.4); SODIUM 137 MEQ/L (136-147); UREA NITROGEN (BUN) 20 mg/dL (9-23)
[2017-09-22 06:34] LABS: GLUCOSE 111 mg/dL (70-99)
[2017-09-22 08:31] VITALS: BP 135/69
[2017-09-22 11:16] VITALS: BP 100/56
[2017-09-22 15:19] VITALS: BP 123/70
[2017-09-22 19:34] VITALS: BP 137/69
[2017-09-22 23:39] VITALS: BP 115/58
[2017-09-23 04:12] VITALS: BP 122/58
[2017-09-23 05:50] LABS: HEMATOCRIT 35.7 % (36.0-46.0); HEMOGLOBIN 10.9 G/DL (11.9-15.5); MCH 23.9 PG (29.0-34.0); MCHC 30.5 G/DL (30.0-36.0); MCV 78.1 FL (83-99); PLATELET COUNT 307 K/uL (156-360); RBC DIS.WIDTH-CV 20.5 % (11.8-14.6); RBC DIS.WIDTH-SD 56.5 % (39-53); RED BLOOD COUNT 4.57 M/uL (3.80-5.20)
[2017-09-23 06:06] LABS: BASOPHIL (%) 0.6 % (0-1); BASOPHIL COUNT 0.1 K/uL (0-0.1); EOSINOPHIL (%) 1.5 % (0-5); EOSINOPHIL COUNT 0.1 K/uL (0-0.3); IMMATURE GRANULOCYTE (%) 0.4 % (0.0-0.7); LYMPHOCYTE (%) 39.8 % (15-42); LYMPHOCYTE COUNT 3.2 K/uL (1.0-2.8); MONOCYTE (%) 9.8 % (3-12); MONOCYTE COUNT 0.8 K/uL (0-0.8); NEUTROPHIL (%) 47.9 % (45-76); NEUTROPHIL COUNT 3.8 K/uL (1.8-6.4)
[2017-09-23 06:11] LABS: CHLORIDE 94 MEQ/L (99-109); CREATININE 1.5 MG/DL (0.6-1.3); GFR ESTIMATE (CALCULATED) 36 mL/min/; GLUCOSE 106 mg/dL (70-99); POTASSIUM 3.7 MEQ/L (3.7-5.4); SODIUM 135 MEQ/L (136-147); UREA NITROGEN (BUN) 18 mg/dL (9-23)
[2017-09-23 08:06] VITALS: BP 131/61
[2017-09-23 11:30] VITALS: BP 140/70
[2017-09-23] MEDS ORDERED: CYCLOBENZAPRINE5 MG PO (16:02)
[2017-09-23] MEDS ORDERED: LOPRESSOR25 MG PO (16:03)
[2017-09-23] MEDS ORDERED: TRAMADOL HCL50 MG PO (16:06)
[2017-09-23] MEDS ORDERED: METFORMIN HCL500 MG PO (16:12)
[2017-09-23 16:19] VITALS: BP 141/67
== END 2017-09-23 18:54 | disposition home or self-care (01) | DRG 292 ==
LOC: EME 13:02 → 3EAST 18:14 → EDOF 18:14 → ENRESERV 18:17 → 3EAST 21:28
PROVIDERS: Emergency Medicine; Internal Medicine
DX: I11.0 Hypertensive heart disease with heart failure (principal); I50.21 Acute systolic (congestive) heart failure; D64.9 Anemia, unspecified; S13.4XXA Sprain of ligaments of cervical spine, initial encounter; S16.1XXA Strain of muscle, fascia and tendon at neck level, initial encounter; R07.9 Chest pain, unspecified; R58 Hemorrhage, not elsewhere classified; N18.9 Chronic kidney disease, unspecified; I48.2 Chronic atrial fibrillation; M19.90 Unspecified osteoarthritis, unspecified site; E11.9 Type 2 diabetes mellitus without complications; E78.5 Hyperlipidemia, unspecified; I25.10 Atherosclerotic heart disease of native coronary artery without angina pectoris; I48.0 Paroxysmal atrial fibrillation; G45.9 Transient cerebral ischemic attack, unspecified; I42.9 Cardiomyopathy, unspecified; E11.22 Type 2 diabetes mellitus with diabetic chronic kidney disease; D72.829 Elevated white blood cell count, unspecified; K21.9 Gastro-esophageal reflux disease without esophagitis; Z96.659 Presence of unspecified artificial knee joint; R09.02 Hypoxemia; I50.23 Acute on chronic systolic (congestive) heart failure; V43.62XA Car passenger injured in collision with other type car in traffic accident, initial encounter; Y92.410 Unspecified street and highway as the place of occurrence of the external cause; Y93.9 Activity, unspecified; Z90.49 Acquired absence of other specified parts of digestive tract; Z79.82 Long term (current) use of aspirin; Z79.84 Long term (current) use of oral hypoglycemic drugs; Z95.5 Presence of coronary angioplasty implant and graft; Z90.710 Acquired absence of both cervix and uterus; Z79.899 Other long term (current) drug therapy; Z79.01 Long term (current) use of anticoagulants; Z86.73 Personal history of transient ischemic attack (TIA), and cerebral infarction without residual deficits; D50.9 Iron deficiency anemia, unspecified; Z68.35 Body mass index [BMI] 35.0-35.9, adult
CPT/HCPCS: 70450; 71250; 72125; 80048; 80053; 81003; 82948; 83880; 84484; 85025; 85027; 85610; 93005; 94640; 99281; 99285; J1940